=== PATIENT | female | born 1945 | race Caucasian/White ===

== ENCOUNTER → 2023-11-29 14:19 | Outpatient (REF) | payer MEDICARE, OTHER, SELFPAY | LOC: WDC 14:19 | PROVIDERS: ATTENDING PHYSICIAN Family Medicine | DX: R92.8 Other abnormal and inconclusive findings on diagnostic imaging of breast (principal) | CPT/HCPCS: 76642 ==

== ENCOUNTER → 2023-12-08 08:43 | Outpatient (REF) | payer MEDICARE, OTHER, SELFPAY ==
[2023-12-08 12:47] LABS: Free T4 1.57 ng/dl (0.78-2.19)
[2023-12-08 13:01] LABS: TSH 0.32 uIU/ml (0.47-4.68)
== END ==
LOC: HWLAB 08:43
PROVIDERS: ATTENDING PHYSICIAN Family Medicine
DX: E03.9 Hypothyroidism, unspecified (principal)
CPT/HCPCS: 36415; 84439; 84443

== ENCOUNTER → 2024-01-11 13:48 | Outpatient (REF) | payer MEDICARE, OTHER, SELFPAY | LOC: RAD 13:48 | PROVIDERS: ATTENDING PHYSICIAN Internal Medicine Cardiovascular Disease; FAMILY PHYSICIAN Family Medicine | DX: R25.2 Cramp and spasm (principal); T45.1X5D Adverse effect of antineoplastic and immunosuppressive drugs, subsequent encounter | CPT/HCPCS: 93922; 93925 ==

== ENCOUNTER → 2024-01-19 12:34 | Outpatient (REF) | payer MEDICARE, OTHER, SELFPAY | LOC: HWRAD 12:34 | PROVIDERS: ATTENDING PHYSICIAN Specialist; FAMILY PHYSICIAN Family Medicine | DX: C34.32 Malignant neoplasm of lower lobe, left bronchus or lung (principal) | CPT/HCPCS: 71260; Q9967 ==

== ENCOUNTER → 2024-03-01 18:46 | Outpatient (REF) | payer MEDICARE, OTHER, SELFPAY | LOC: MRI 18:46 | PROVIDERS: ATTENDING PHYSICIAN Specialist; FAMILY PHYSICIAN Family Medicine | DX: N28.9 Disorder of kidney and ureter, unspecified (principal) | CPT/HCPCS: 74183; A9575 ==

== ENCOUNTER → 2024-03-03 07:41 | Outpatient (REF) | payer MEDICARE, OTHER, SELFPAY ==
[2024-03-03 10:24] LABS: ALT (SGPT) 20 U/L (0-35); AST (SGOT) 24 U/L (14-36); Albumin 3.9 g/dl (3.5-5.0); Alkaline Phosphatase 93 U/L (38-126); Blood Urea Nitrogen 19 mg/dl (7-17); Calcium 9.7 mg/dl (8.4-10.2); Carbon Dioxide 29 mmol/L (22-30); Chloride 105 mmol/L (98-107); Glucose 88 mg/dl (70-99); HDL Cholesterol 70 mg/dl; LDL Cholesterol, Calculated 125 mg/dl; Potassium 4.5 mmol/L (3.5-5.1); Sodium 140 mmol/L (135-145); Total Bilirubin 0.5 mg/dl (0.2-1.3); Total Cholesterol 214 mg/dl (50-199); Total Protein 6.5 g/dl (6.3-8.2); Triglyceride 96 mg/dl (10-149); Very Low Density Lipoprotein 19 mg/dl (0-30); eGFR > 60.00
[2024-03-03 10:41] LABS: Free T4 1.22 ng/dl (0.78-2.19)
[2024-03-03 10:55] LABS: TSH 1.43 uIU/ml (0.47-4.68)
== END ==
LOC: HWLAB 07:41
PROVIDERS: ATTENDING PHYSICIAN Internal Medicine Cardiovascular Disease; FAMILY PHYSICIAN Family Medicine
DX: E78.2 Mixed hyperlipidemia (principal); M79.10 Myalgia, unspecified site; E03.9 Hypothyroidism, unspecified
CPT/HCPCS: 36415; 80053; 80061; 84439; 84443

== ENCOUNTER → 2024-05-02 11:23 | Outpatient (REF) | payer MEDICARE, OTHER, SELFPAY | LOC: HWRAD 11:23 | PROVIDERS: ATTENDING PHYSICIAN Nurse Practitioner; FAMILY PHYSICIAN Family Medicine | DX: M25.551 Pain in right hip (principal); M25.552 Pain in left hip | CPT/HCPCS: 73523 ==

== ENCOUNTER → 2024-05-08 09:28 | Outpatient (REF) | payer MEDICARE, OTHER, SELFPAY | LOC: HWRAD 09:28 | PROVIDERS: ATTENDING PHYSICIAN Specialist; FAMILY PHYSICIAN Family Medicine | DX: C34.32 Malignant neoplasm of lower lobe, left bronchus or lung (principal) | CPT/HCPCS: 71260; Q9967 ==

== ENCOUNTER → 2024-06-20 14:26 | Outpatient (REF) | payer MEDICARE, OTHER, SELFPAY | LOC: WDC 14:26 | PROVIDERS: ATTENDING PHYSICIAN Family Medicine | DX: Z12.31 Encounter for screening mammogram for malignant neoplasm of breast (principal); R92.8 Other abnormal and inconclusive findings on diagnostic imaging of breast | CPT/HCPCS: 76642; 77063; 77067 ==

== ENCOUNTER → 2024-07-05 07:12 | Outpatient (REF) | payer MEDICARE, OTHER, SELFPAY ==
[2024-07-05 10:06] LABS: ALT (SGPT) 21 U/L (0-35); AST (SGOT) 23 U/L (14-36); Albumin 4.2 g/dl (3.5-5.0); Alkaline Phosphatase 87 U/L (38-126); Blood Urea Nitrogen 18 mg/dl (7-17); Calcium 9.5 mg/dl (8.4-10.2); Carbon Dioxide 28 mmol/L (22-30); Chloride 104 mmol/L (98-107); Glucose 88 mg/dl (70-99); HDL Cholesterol 62 mg/dl; LDL Cholesterol, Calculated 94 mg/dl; Potassium 4.4 mmol/L (3.5-5.1); Sodium 143 mmol/L (135-145); Total Bilirubin 0.7 mg/dl (0.2-1.3); Total Cholesterol 181 mg/dl (50-199); Total Protein 6.6 g/dl (6.3-8.2); Triglyceride 127 mg/dl (10-149); Very Low Density Lipoprotein 25 mg/dl (0-30); eGFR > 60.00
[2024-07-05 10:20] LABS: Free T4 1.34 ng/dl (0.78-2.19)
[2024-07-05 10:36] LABS: TSH 0.75 uIU/ml (0.47-4.68)
== END ==
LOC: HWLAB 07:12
PROVIDERS: ATTENDING PHYSICIAN Family Medicine
DX: E78.2 Mixed hyperlipidemia (principal); E03.9 Hypothyroidism, unspecified
CPT/HCPCS: 36415; 80053; 80061; 84439; 84443

== ENCOUNTER → 2024-09-22 12:12 | Outpatient (REF) | payer MEDICARE, OTHER, SELFPAY | LOC: PAVMRI 12:12 | PROVIDERS: ATTENDING PHYSICIAN Surgery; FAMILY PHYSICIAN Family Medicine | DX: N28.1 Cyst of kidney, acquired (principal) | CPT/HCPCS: 74183; A9575 ==

== ENCOUNTER → 2024-11-08 09:08 | Outpatient (REF) | payer MEDICARE, OTHER, SELFPAY | LOC: HWRAD 09:08 | PROVIDERS: ATTENDING PHYSICIAN Family Medicine | DX: C34.92 Malignant neoplasm of unspecified part of left bronchus or lung (principal) | CPT/HCPCS: 71046 ==

== ENCOUNTER → 2024-12-13 07:33 | Outpatient (REF) | payer MEDICARE, OTHER, SELFPAY ==
[2024-12-13 10:02] LABS: Iron 103 ug/dl (37-170)
[2024-12-13 10:11] LABS: Percent Saturation 34 % (20-50); Total Iron Binding Capacity 295 ug/dl (265-497)
[2024-12-13 10:19] LABS: Vitamin D, 25-OH*** 31.6 ng/mL (30-80)
[2024-12-13 10:33] LABS: TSH Reflex To Free T4 1.77 uIU/ml (0.47-4.68)
[2024-12-13 11:06] LABS: Erythrocyte Sed Rate 11 mm/hour (0-20)
[2024-12-13 11:09] LABS: Folate 9.3 ng/ml (2.76-20); Vitamin B12 319 pg/ml (239-931)
[2024-12-13 15:02] LABS: Lyme Antibody Screen, EIA Negative (Negative)
[2024-12-14 13:05] LABS: Vitamin D 1,25 Dihydroxy 32.6 pg/mL (19.9-79.3)
[2024-12-14 16:19] LABS: Copper, Serum 83.9 ug/dL (80.0-155.0)
[2024-12-14 22:43] LABS: SSA 52 (Ro)(ENA) Ab, IgG 9 AU/mL (0-40); SSA 60 (Ro)(ENA) Ab, IgG 0 AU/mL (0-40); SSB (La)(ENA) Ab, IgG 0 AU/mL (0-40)
[2024-12-15 16:23] LABS: Gamma-Tocopherol 1.6 mg/L (0.0-6.0)
[2024-12-16 10:12] LABS: Albumin 3.94 g/dL (3.75-5.01); Alpha 1 Globulin 0.23 g/dL (0.19-0.46); Alpha 2 Globulin 0.66 g/dL (0.48-1.05); SPEP IFE Reflex Not Done; Total Protein-Electrophoresis 6.4 g/dL (6.3-8.2)
== END ==
LOC: HWLAB 07:33
PROVIDERS: ATTENDING PHYSICIAN Psychiatry & Neurology Neurology; FAMILY PHYSICIAN Family Medicine
DX: R20.0 Anesthesia of skin (principal); C34.92 Malignant neoplasm of unspecified part of left bronchus or lung; M17.12 Unilateral primary osteoarthritis, left knee
CPT/HCPCS: 36415; 82306; 82525; 82607; 82652; 82746; 83540; 83550; 84155; 84165; 84207; 84425; 84443; 84446; 85652; 86235; 86618

== ENCOUNTER → 2024-12-14 14:18 | Outpatient (REF) | payer MEDICARE, OTHER, SELFPAY | LOC: WDC 14:18 | PROVIDERS: ATTENDING PHYSICIAN Family Medicine | DX: R92.8 Other abnormal and inconclusive findings on diagnostic imaging of breast (principal) | CPT/HCPCS: 76642 ==

== ENCOUNTER → 2025-02-05 09:52 | Outpatient (REF) | payer MEDICARE, OTHER, SELFPAY | LOC: HWRCS 09:52 | PROVIDERS: ATTENDING PHYSICIAN Internal Medicine Cardiovascular Disease; FAMILY PHYSICIAN Family Medicine | DX: R00.2 Palpitations (principal); R00.0 Tachycardia, unspecified; I34.0 Nonrheumatic mitral (valve) insufficiency | CPT/HCPCS: 93306 ==

== ENCOUNTER 2025-02-12 21:29 | Emergency (ER) | payer MEDICARE, OTHER, SELFPAY ==
[2025-02-12 21:33] VITALS: BP 175/95
[2025-02-12 22:08] VITALS: BP 142/63
--- NOTE | 2025-02-12 22:09 | ED.GENMED ---
History of Present Illness
General
Chief Complaint: Blood Pressure Problem
Source: patient
Exam Limitations: none
Time Seen by Provider: 02/12/25 21:38
Nursing documentation reviewed up to this point in time: agreed with
History of Present Illness
History of Present Illness:
This is a 80-year-old female with a past medical history of hypertension, hyperlipidemia, Gerd, hypothyroidism, who presents at [facility] today with concerns of elevated blood pressure. Patient reports that she has had cancer in the past,
and she reports that she follows with Dr. Vincent because she was involved in a study monitoring, heart disease risk in female patients with cancer. Patient currently does not have a history of cardiac disease or high blood pressure and she
follows with cardiology for monitoring purposes. I have no, she had an echocardiogram done last week, which demonstrate a normal left ventricular size and function with an ejection fraction of 55 to 60%. She was told by Dr. Harris staff that
if she develops two concurrent blood pressure reading histologically of 135 or greater twice in a row, she has to call Dr. Archibald immediately. patient has no history of high blood pressure has never had to go on medication for her blood
pressure. Patient reports that she was coming in from gardening and had a transient episode of lightheadedness and fatigue. lasting around five minutes. She did not lose consciousness. She denies palpitations or chest pain, shortness of breath.
Currently, she feels well and does not feel dizzy or light-headed, and is asymptomatic. she took her blood pressure at the time and noticed it was stoically around 170. She reports that it was too late in the evening to call the cardiology office.
.
Past History
Past History
ED Past Medical History: Hypercholesterolemia, Hypothyroidism, Other and Other
ED Past Surgical History: Appendectomy, Cholecystectomy and Other
Social History
Tobacco: Non-smoker
Personal:
Living: with family
Employment: Retired
Family History
Family History: Other
Review of Systems
Review of Systems
All Other Systems: ROS reviewed and negative except as documented in HPI and ROS
Phy Exam
Physical Exam
Physical Exam:
General: Patient is well appearing and in no acute distress; non-toxic
Skin: Warm and dry, no rashes or lesions
Head: Normocephalic, atraumatic
Eyes: Sclera non-icteric. EOMs intact.
Cardiac: Regular rate and rhythm, no murmurs
Peripheral Vascular: No lower extremity swelling or edema
Pulm: Normal respiratory effort
Neuro: CN II-XII intact, no focal neurologic deficits. Normal finger to nose, heel to [place] testing. Normal gait.
Psychiatric: Appropriate mood and affect.
Course
Orders/Labs/Results
Orders:
Orders
02/12/25 21:32
EKG [Electrocardiogram (*1)] Urgent
Reason for Study: Hypertension, Benign
EKG- Treatment ONCE
02/12/25 22:40
Complete Blood Count/With Diff Urgent
Comprehensive Metabolic Panel Urgent
Abnormal Lab Results
02/12/25
22:40
RBC 4.11 L 10^6/uL
(4.20-5.40)
MCH 33.6 H pg
(27.0-31.0)
Absolute Monos (auto) 0.7 H 10^3/uL
(0.1-0.6)
Monocytes % 11.1 H %
(1.7-9.3)
Chloride 109 H mmol/L
(98-107)
BUN 25 H mg/dl
(7-17)
Glucose 111 H mg/dl
(70-99)
02/12/25 22:40
02/12/25 22:40
Vital Signs
Initial and Last Documented VS:
Initial Vital Signs
Temp Pulse Resp BP Pulse Ox
97.6 F 104 16 175/95 99
02/12/25 21:33 02/12/25 21:33 02/12/25 21:33 02/12/25 21:33 02/12/25 21:33
Last Documented Vital Signs
Temp Pulse Resp BP Pulse Ox
97.6 F 80 16 136/64 99
02/12/25 21:33 02/12/25 23:35 02/12/25 23:35 02/12/25 23:35 02/12/25 23:35
MDM/Problems Addressed
Differential Diagnosis Includes:
ddx include essential hypertension, electrolyte derangement, dehydration, orthostatic hypotension
MDM/Problems Addressed:
This is a 80-year-old female with a past medical history of hypertension, hyperlipidemia, Gerd, hypothyroidism, who presents at Emergency apartment today with concerns of elevated blood pressure. She follows with Dr. Archibald and she recently
started routinely checking her blood pressure per Dr. Archibald's request. She is currently asymptomatic but she was told that she needs to contact her [employer] right away if she has a BP >135. I did contact Dr. Mock physician information security architect for
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 Considering patient had unremarkable echocardiogram last week, unremarkable blood work/ecg today, is asymptomatic, no indication for treatment at this time. Patient's blood pressure did come down on its own without
intervention. Advised patient to call the office this week for a follow up appointment.---In regards to patient's dizziness, lightheadedness,, it is unclear why patient had this episode, perhaps related to dehydration. She has a non-focal neurologic
exam and ecg without evidence of dysrhythmia. I did offer CT scan of the head to patient however patient requests to go home. I think this is reasonable in light of patient's lack of symptoms and unremarkable exam. Pt stable for discharge.
*Critical Care Note
Total Time (30-74mins, 75-104mins- exclusive of procedures): Not Applicable
ED Attending Note
-
Portions of this chart may have been created with voice recognition software.� Occasional wrong word or��sound alike� substitutions may have occurred due to the inherent limitations of voice recognition software.
Discharge Plan
Departure
Patient Disposition: Home (Routine Discharge)
Date of Disposition: 02/12/25
Time of Disposition: 23:18
Patient with high blood pressure during this ER visit?: Yes
Condition: Good
Discharge Problem:
High blood pressure, Episodic lightheadedness
Instructions: BLOOD PRESSURE
Prescriptions:
No Action
calcium carbonate [Antacid (calcium carbonate)] 1 TABLET tablet,chewable
500 mg PO Q4HPRN PRN (Reason: heartburn)
coenzyme [id number] E 1 CAP capsule
1 cap PO DAILY
Fish Oil 1 EACH capsule,delayed release(DR/EC)
1 ea PO DAILY
atorvastatin [Lipitor] 10 mg Tablet
5 mg PO DAILY
levothyroxine 112 mcg Tablet
112 mcg PO DAILY
Viactiv
1 dose PO DAILY
diltiazem HCl 120 mg Capsule,Extended Release 12 Hr
120 mg PO DAILY
magnesium 250 mg Tablet
250 mg PO DAILY
Tagrisso 40 mg Tablet
40 mg PO DAILY
Probiotic
1 cap PO DAILY
vitamin E
180 mg PO DAILY
Referrals:
Felecia Archibald MD [Active] - Call in 1-3 days for appt
Artemio Jones MD [Family Provider] -
Activity Restrictions/Additional Instructions:
Please call Dr. Archibald's office to schedule a follow up appointment.
Please continue to monitor your symptoms.
PLEASE RETURN TO THE ER SHOULD YOU DEVELOP DIZZINESS, LIGHTHEADEDNESS, HEADACHES, FEVER OR CHILLS, CHEST PAIN, SHORTNESS OF BREATH, OR ANY OTHER SIGNS OR SYMPTOMS WORRISOME TO YOU.
Interventions
Interventions:
*Risk Screen - Suicide Last Done: 02/12/25 21:33
*General Assessment Last Done: 02/12/25 21:33
*Neglect/Abuse Screening Last Done: 02/12/25 21:33
*ED- Fall Risk Assessment Last Done: 02/12/25 22:00
*ED COVID-19 Vaccine History Last Done: 02/12/25 22:00
*Nursing Disposition Last Done: 02/12/25 23:35
ED- Cardiac Assessment Last Done: 02/12/25 22:00
ED- Neurological Assessment Last Done: 02/12/25 22:00
ED- Pulmonary Assessment Last Done: 02/12/25 22:00
Discharge Date and Time
Discharge Date/Time: 02/12/25 23:35
Print Language: [place]
[2025-02-12 22:47] LABS: % Basophils 1.1 % (0-2); % Eosinophils 2.4 % (0-6); % Immature Granulocytes 0.3 % (0-0.5); % Lymphocytes 20.7 % (20.5-51.1); % Monocytes 11.1 % (1.7-9.3); % Neutrophils 64.4 % (42.2-75.2); Absolute Basophils 0.1 10^3/uL (0-0.2); Absolute Eosinophils 0.2 10^3/uL (0-0.7); Absolute Lymphocytes 1.4 10^3/uL (1.2-3.4); Absolute Monocytes 0.7 10^3/uL (0.1-0.6); Absolute Neutrophils 4.2 10^3/uL (1.4-6.5); Hematocrit 40.6 % (37.0-47.0); Hemoglobin 13.8 g/dL (12.0-16.0); Mean Corpuscular Hgb 33.6 pg (27.0-31.0); Mean Corpuscular Volume 98.8 fL (81.0-99.0); Mean Platelet Volume 10.4 fL (7.4-10.4); Nucleated Red Blood Cells % 0 %; Platelet Count 214 10^3/uL (130-400); Red Blood Cell Count 4.11 10^6/uL (4.20-5.40); Red Cell Dist. Width 13.2 % (11.5-14.5); White Blood Cell Count 6.6 10^3/uL (4.8-10.8)
[2025-02-12 22:59] LABS: ALT (SGPT) 23 U/L (0-35); AST (SGOT) 22 U/L (14-36); Alkaline Phosphatase 125 U/L (38-126); Blood Urea Nitrogen 25 mg/dl (7-17); Calcium 9.2 mg/dl (8.4-10.2); Carbon Dioxide 28 mmol/L (22-30); Chloride 109 mmol/L (98-107); Glucose 111 mg/dl (70-99); Potassium 4.3 mmol/L (3.5-5.1); Sodium 141 mmol/L (135-145); Total Bilirubin 0.3 mg/dl (0.2-1.3); Total Protein 6.5 g/dl (6.3-8.2); eGFR > 60.00
[2025-02-12 23:00] VITALS: BP 139/67
[2025-02-12 23:35] VITALS: BP 136/64
== END 2025-02-12 23:35 | disposition home or self-care (01) ==
LOC: EMR 21:29
PROVIDERS: Physician Assistant; EMERGENCY PHYSICIAN Student in an Organized Health Care Education/Training Program; FAMILY PHYSICIAN Family Medicine
DX: R42 Dizziness and giddiness (principal); I10 Essential (primary) hypertension; E78.00 Pure hypercholesterolemia, unspecified; E03.9 Hypothyroidism, unspecified
CPT/HCPCS: 99284; 80053; 85025; 93005

== ENCOUNTER → 2025-02-19 10:21 | Outpatient (REF) | payer MEDICARE, OTHER, SELFPAY | LOC: MRI 10:21 | PROVIDERS: ATTENDING PHYSICIAN Pain Medicine Interventional Pain Medicine; FAMILY PHYSICIAN Family Medicine | DX: N28.1 Cyst of kidney, acquired (principal); M54.16 Radiculopathy, lumbar region | CPT/HCPCS: 72148; 74183; A9575 ==

== ENCOUNTER → 2025-02-27 07:32 | Outpatient (REF) | payer MEDICARE, OTHER, SELFPAY ==
[2025-02-27 10:07] LABS: Free T4 1.56 ng/dl (0.78-2.19)
[2025-02-27 10:41] LABS: ALT (SGPT) 20 U/L (0-35); AST (SGOT) 20 U/L (14-36); Alkaline Phosphatase 90 U/L (38-126); Blood Urea Nitrogen 20 mg/dl (7-17); Calcium 9.4 mg/dl (8.4-10.2); Carbon Dioxide 25 mmol/L (22-30); Chloride 109 mmol/L (98-107); Glucose 94 mg/dl (70-99); HDL Cholesterol 54 mg/dl; LDL Cholesterol, Calculated 96 mg/dl; Potassium 4.3 mmol/L (3.5-5.1); Sodium 140 mmol/L (135-145); Total Bilirubin 0.7 mg/dl (0.2-1.3); Total Cholesterol 172 mg/dl (50-199); Total Protein 6.4 g/dl (6.3-8.2); Triglyceride 111 mg/dl (10-149); Very Low Density Lipoprotein 22 mg/dl (0-30); eGFR > 60.00
== END ==
LOC: HWLAB 07:32
PROVIDERS: ATTENDING PHYSICIAN Family Medicine
DX: E78.2 Mixed hyperlipidemia (principal); E03.9 Hypothyroidism, unspecified
CPT/HCPCS: 36415; 80053; 80061; 84439; 84443

== ENCOUNTER → 2025-05-25 11:01 | Outpatient (REF) | payer MEDICARE, OTHER, SELFPAY | LOC: RAD 11:01 | PROVIDERS: ATTENDING PHYSICIAN Physician Assistant; FAMILY PHYSICIAN Family Medicine | DX: C34.32 Malignant neoplasm of lower lobe, left bronchus or lung (principal) | CPT/HCPCS: 71260; Q9967 ==

== ENCOUNTER → 2025-06-22 13:18 | Outpatient (REF) | payer MEDICARE, OTHER, SELFPAY | LOC: WDC 13:18 | PROVIDERS: ATTENDING PHYSICIAN Family Medicine | DX: I47.19 Other supraventricular tachycardia (principal); R00.2 Palpitations; I47.20 Ventricular tachycardia, unspecified; R06.09 Other forms of dyspnea; Z12.31 Encounter for screening mammogram for malignant neoplasm of breast; R92.8 Other abnormal and inconclusive findings on diagnostic imaging of breast | CPT/HCPCS: 76642; 77063; 77067 ==

== ENCOUNTER → 2025-08-27 07:38 | Outpatient (REF) | payer MEDICARE, OTHER, SELFPAY ==
[2025-08-27 09:38] LABS: ALT (SGPT) 20 U/L (0-35); AST (SGOT) 22 U/L (14-36); Albumin 4.2 g/dl (3.5-5.0); Alkaline Phosphatase 92 U/L (38-126); Blood Urea Nitrogen 20 mg/dl (7-17); Calcium 9.6 mg/dl (8.4-10.2); Carbon Dioxide 28 mmol/L (22-30); Chloride 106 mmol/L (98-107); Glucose 92 mg/dl (70-99); HDL Cholesterol 65 mg/dl; LDL Cholesterol, Calculated 99 mg/dl; Potassium 4.5 mmol/L (3.5-5.1); Sodium 140 mmol/L (135-145); Total Protein 6.9 g/dl (6.3-8.2); Very Low Density Lipoprotein 20 mg/dl (0-30); eGFR > 60.00
[2025-08-27 10:05] LABS: TSH 2.46 uIU/ml (0.47-4.68)
== END ==
LOC: REG 07:38
PROVIDERS: ATTENDING PHYSICIAN Family Medicine
DX: E78.2 Mixed hyperlipidemia (principal); E03.9 Hypothyroidism, unspecified
CPT/HCPCS: 36415; 80053; 80061; 84439; 84443

== ENCOUNTER → 2025-09-06 11:28 | Outpatient (REF) | payer MEDICARE, OTHER, SELFPAY | LOC: PAVMRI 11:28 | PROVIDERS: ATTENDING PHYSICIAN Surgery; FAMILY PHYSICIAN Family Medicine | DX: N28.1 Cyst of kidney, acquired (principal) | CPT/HCPCS: 74183; A9575 ==

== ENCOUNTER 2025-09-17 17:22 | Emergency (ER) | payer MEDICARE, OTHER, SELFPAY ==
[2025-09-17 17:24] VITALS: BP 152/96
--- NOTE | 2025-09-17 19:52 | ED.GENMED ---
History of Present Illness
General
Chief Complaint: DVT/Possible Blood Clot
Source: patient
Time Seen by Provider: 09/17/25 19:44
History of Present Illness
History of Present Illness:
80-year-old female presents to the emergency room complaining of left leg swelling. Patient recently had 'minor' back surgery. She was at the doctor's office for recheck today. The provider who was evaluating her noted she had some swelling of
her left lower extremity. Given her recent surgical procedure she was referred to exclude a DVT. Patient has no chest pain or shortness of breath. She has been trying to walk around the house is much as possible for exercise. She denies any
injury to her leg. 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 This prevents her from wearing anything like compression stockings or tight socks.
Past History
Past History
ED Past Medical History: Hypercholesterolemia, Hypothyroidism, Other and Other
ED Past Surgical History: Appendectomy, Cholecystectomy and Other
Social History
Tobacco: Non-smoker
Personal:
Living: with family
Employment: Retired
Family History
Family History: Other
Phy Exam
Physical Exam
Physical Exam:
General: Awake, Alert, Oriented X3. No acute distress.
Vitals: unremarkable
Head: Atraumatic
Eyes: Pupils equal, EOMI
Throat: Airway intact, no exudates
Neck: Trachea midline
Neuro: Nonfocal
Skin: Warm, dry, no rash
Extremities: pulses equal b/l, mild swelling left lower extremity. Sensation is intact. No discoloration noted
Course
Orders/Labs/Results
Orders:
Orders
09/17/25 17:28
US Legs, Left [US Periph Venous LOWER Ext LT] Urgent
Comment:
Reason For Exam: swelling/pain
Vital Signs
Initial and Last Documented VS:
Initial Vital Signs
Temp Pulse Resp BP Pulse Ox
98.5 F 89 20 152/96 100
09/17/25 17:24 09/17/25 17:24 09/17/25 17:24 09/17/25 17:24 09/17/25 17:24
Last Documented Vital Signs
Temp Pulse Resp BP Pulse Ox
98.5 F 89 20 152/96 100
09/17/25 17:24 09/17/25 17:24 09/17/25 17:24 09/17/25 17:24 09/17/25 19:55
MDM/Problems Addressed
Differential Diagnosis Includes:
Stasis, DVT, swelling from DJD and increased activity
MDM/Problems Addressed:
Ultrasound shows no clot. Patient's physical exam is benign. No emergent process suspected. Follow-up primary as an outpatient. Discussed compression stockings but patient cannot really wear them because of her neuropathy.
*Pulse Oximetry
SaO2: 100
Oxygen Mode of Delivery: Room air
Patient hypoxic: no
*Critical Care Note
Total Time (30-74mins, 75-104mins- exclusive of procedures): Not Applicable
ED Attending Note
-
Portions of this chart may have been created with voice recognition software.� Occasional wrong word or��sound alike� substitutions may have occurred due to the inherent limitations of voice recognition software.
Discharge Plan
Departure
Patient Disposition: Home (Routine Discharge)
Date of Disposition: 09/17/25
Time of Disposition: 19:52
Patient with high blood pressure during this ER visit?: Yes
Condition: Good
Discharge Problem:
Edema of left lower leg
Instructions: Swelling
Prescriptions:
No Action
calcium carbonate [Antacid (calcium carbonate)] 1 TABLET tablet,chewable
500 mg PO Q4HPRN PRN (Reason: heartburn)
coenzyme [id number] 1 CAP capsule
1 cap PO DAILY
Fish Oil 1 EACH capsule,delayed release(DR/EC)
1 ea PO DAILY
atorvastatin [Lipitor] 10 mg Tablet
5 mg PO DAILY
levothyroxine 112 mcg Tablet
112 mcg PO DAILY
Viactiv
1 dose PO DAILY
diltiazem HCl 120 mg Capsule,Extended Release 12 Hr
120 mg PO DAILY
magnesium 250 mg Tablet
250 mg PO DAILY
Tagrisso 40 mg Tablet
40 mg PO DAILY
Probiotic
1 cap PO DAILY
vitamin E
180 mg PO DAILY
Activity Restrictions/Additional Instructions:
The ultrasound showed no evidence of a clot. Try to keep your legs elevated is much as possible. Follow-up your primary care provider
Interventions
Interventions:
*General Assessment Last Done: 09/17/25 17:24
*Neglect/Abuse Screening Last Done: 09/17/25 17:24
*Risk Screen - Suicide (C-SSRS) Last Done: 09/17/25 17:24
Discharge Date and Time
Print Language: [place]
== END 2025-09-17 20:37 | disposition home or self-care (01) ==
LOC: EMR 17:22
PROVIDERS: EMERGENCY PHYSICIAN Emergency Medicine; FAMILY PHYSICIAN Family Medicine
DX: R60.0 Localized edema (principal); R03.0 Elevated blood-pressure reading, without diagnosis of hypertension; G57.93 Unspecified mononeuropathy of bilateral lower limbs
CPT/HCPCS: 99284; 93971